=== PATIENT | female | born 1985 | race Caucasian/White ===

== ENCOUNTER → 2016-11-22 | Outpatient (CLI) | payer MEDICAID ==
[~2016-11-22] MED LIST: CABERGOLINE0.5 MG PO; COLACE-DPS100 MG PO; MIRALAX PACKET17 GM PO; MOTRIN-DPS800 MG PO; NORCO 5-325 TA1 EACH PO; PRENATAL VIT1 TAB PO; PRENATAL VITAM1 EAC4 PO; TYLENOL #3 DPS1 TAB PO; TYLENOL EXTRA500 M1 PO; VALACYCLOVIR500 MG PO; VITAMIN D1000 UNI1 PO; ZANTAC DPS150 MG PO; ZOFRAN4 MG PO
--- NOTE | 2016-12-14 09:04 | OR ---
ADMIT: 11/22/2016 RM/LOC: [facility] MR#: [id number] [address] SAM[facility] CAMPOVERDE [address] [place] [address] Operative/Delivery Room Report SEX: F AGE: 31 : 1985 SURGERY DATE: 11/22/2016 SURGEON: Atif Damian MD PREOPERATIVE DIAGNOSIS: Patient desires lap band fill. POSTOP DIAGNOSIS: Patient desires lap band fill. PROCEDURE PERFORMED: A lap band fill with fluoro. ANESTHESIA: None. DESCRIPTION OF PROCEDURE: After the patient arrived in Radiology, she was placed on the fluoro bed. Her left upper quadrant was prepped and draped in a sterile fashion. Using fluoro, I was able to identify the port for her lap band. This was quite a bit lower than I initially expected. I was then able to use fluoro to direct the needle directly into the port. Picture was taken for the patient's permanent record. I had good feeling of the hitting the bottom of the port with the needle. I was able to add 2 mL of fluid, aspirated and flushed easily. I left 2 mL of fluid in the band. Band-aid was placed. The patient was sat up and she was allowed to drink some water which she tolerated fine. I will see her back in 4-6 weeks. Atif Damian MD/ aline JOB #: [id number] CC: Atif Damian, Attending Physician Julio Figueredo, Family Physician
== END | disposition home or self-care (01) ==
LOC: RAD.S 12:00
DX: E66.01 Morbid (severe) obesity due to excess calories (principal)

== ENCOUNTER → 2016-12-24 | Outpatient (CLI) | payer MEDICAID | END | disposition home or self-care (01) | LOC: PTH.S 12-22 13:15 | DX: Z36 Encounter for antenatal screening of mother (principal); Z3A.01 Less than 8 weeks gestation of pregnancy ==

== ENCOUNTER 2017-01-07 14:03 | Emergency (ER) | payer MEDICAID ==
[~2017-01-07 14:03] MED LIST changes: -COLACE-DPS100 MG PO; -MIRALAX PACKET17 GM PO; -PRENATAL VIT1 TAB PO; -ZANTAC DPS150 MG PO
--- NOTE | 2017-02-03 21:25 | ER ---
ADMIT: 01/07/2017 RM/LOC: ER [facility] MR#: [id number] [address] [address] C[address]DE [address] [place] [address] Emergency Room Report SEX: F AGE: 31 : 1985 DATE: 01/07/2017 HISTORY OF PRESENT ILLNESS: A 31-year-old female, concerned about her left lower quadrant abdomen. She is 5 weeks' . She essentially wants an ultrasound because she wants to know how far long she is on her and if her is in the right spot. She stated that she had a fallopian tube and did have D and C in another . She looks pretty comfortable. She is texting on the phone. PAST MEDICAL HISTORY: Ovarian cyst. She has had brain tumor, cholecystectomy, tonsillectomy. MEDICATIONS: She is taking and progesterone to keep her . ALLERGIES: SHE DENIES ANY ALLERGIES AT THIS TIME. PHYSICAL EXAMINATION: VITAL SIGNS: Within normal limits. Blood pressure is 128/52. GENERAL: Mildly anxious. : Tenderness in the left lower quadrant. Gravid uterus. EXTREMITIES: Nontender. SKIN: Good color. NEURO: Oriented x4. LABORATORY AND X-RAY DATA: UA, contaminated, but does not show infection. Quantitative HCG is 8038. Her OB ultrasound, pole 5 weeks 6 days, read by Dr. Solis as heart tones of 156, intrauterine . Instructions to follow up given. CHANTELL Hogue / Jose F Pagan MD / modl JOB #: [id number] CC: Henrik Kay MD, Attending Physician Faby Lockett MD, Family Physician
[2017-04-16] MEDS ORDERED: PRENATAL VIT1 TAB PO (10:56)
[2017-04-16] MEDS ORDERED: MIRALAX PACKET17 GM PO (10:56)
[2017-04-16] MEDS ORDERED: COLACE-DPS100 MG PO (10:56)
[2017-04-16] MEDS ORDERED: ZANTAC DPS150 MG PO (10:57)
== END 2017-01-07 18:10 | disposition home or self-care (01) ==
LOC: ER 14:03
DX: O99.89 Other specified diseases and conditions complicating pregnancy, childbirth and the puerperium (principal); R10.2 Pelvic and perineal pain; Z3A.01 Less than 8 weeks gestation of pregnancy; Z85.841 Personal history of malignant neoplasm of brain; Z79.899 Other long term (current) drug therapy

== ENCOUNTER 2017-03-12 17:04 | Emergency (ER) | payer MEDICAID ==
--- NOTE | 2017-03-22 14:22 | ER ---
ADMIT: 03/12/2017 RM/LOC: ER [facility] MR#: [id number] [address] [address] C[address] [place] [address] Emergency Room Report SEX: F AGE: 31 : 1985 DATE: 03/12/2017 ADDENDUM: CHIEF COMPLAINT: Vomiting. HISTORY OF PRESENT ILLNESS: This is a 31-year-old female, who has been on progesterone for . She said ever since she stopped it, she just has had a lot of nausea. She comes to the ER because she says she has not been able to keep anything down really for the last week. COURSE IN THE EMERGENCY ROOM: I did 2 L of normal saline. Her urine showed 3+ ketones. CLINICAL IMPRESSION: Discomfort of , nausea, and vomiting. Sending her home having her continue her medications and follow up with her primary care physician if she worsens. CHANTELL Nielson / Edenilson Allan MD / aline JOB #: [id number] CC: Enmanuel Shannon MD, Attending Physician Faby Lockett MD, Family Physician
[2017-04-16] MEDS ORDERED: COLACE-DPS100 MG PO (10:56)
[2017-04-16] MEDS ORDERED: PRENATAL VIT1 TAB PO (10:56)
[2017-04-16] MEDS ORDERED: MIRALAX PACKET17 GM PO (10:56)
[2017-04-16] MEDS ORDERED: ZANTAC DPS150 MG PO (10:57)
== END 2017-03-12 20:23 | disposition home or self-care (01) ==
LOC: ER 17:04
DX: O21.9 Vomiting of pregnancy, unspecified (principal); R11.0 Nausea; Z90.89 Acquired absence of other organs; Z79.899 Other long term (current) drug therapy; Z3A.14 14 weeks gestation of pregnancy